=== PATIENT | male | born 1980 | race Caucasian/White ===

== ENCOUNTER 2021-07-31 11:15 | Emergency (ER) | payer MEDICAID ==
[~2021-07-31] VITALS: Ht 177.8 cm; Wt 71.7 kg
[2021-07-31 11:15] VITALS: BP_SYST 164
[2021-07-31 11:40] VITALS: BP_SYST 164
[2021-07-31] MEDS ORDERED: KETOROLAC TROMETHAMINE 60 MG/2 ML VIAL IM ONE (11:45)
== END 2021-07-31 11:40 | disposition left against medical advice (07) ==
LOC: SED 11:15
DX: S20.211A Contusion of right front wall of thorax, initial encounter (principal); Y04.0XXA Assault by unarmed brawl or fight, initial encounter; Y93.89 Activity, other specified; Y92.89 Other specified places as the place of occurrence of the external cause; Y99.8 Other external cause status
CPT/HCPCS: 99281